=== PATIENT | male | born 1975 | race Caucasian/White ===

== ENCOUNTER → 2020-04-09 | Outpatient (CLI) | payer BC | LOC: LAB 11:02 | DX: U07.1 COVID-19 (principal) ==

== ENCOUNTER 2020-12-10 15:23 | Emergency (ER) | payer BC ==
[2020-12-10] MEDS ORDERED: ATORVASTATIN CA20 MG PO (15:52)
[2020-12-10] MEDS ORDERED: LISINOPRIL20 MG PO (15:52)
[2020-12-10] MEDS ORDERED: SERTRALINE HYD100 MG PO (15:52)
[2020-12-10] MEDS ORDERED: CENTRUM ADULTS1 EACH PO (15:53)
[2020-12-10 16:03] LABS: URINE APPEARANCE HAZY; URINE BILIRUBIN NEGATIVE (NEGATIVE); URINE BLOOD 50 ery/uL (NEGATIVE); URINE COLOR T; URINE GLUCOSE NEGATIVE (NEGATIVE); URINE KETONE NEGATIVE (NEGATIVE); URINE LEUKOCYTE ESTERASE TRACE (NEGATIVE); URINE NITRATE NEGATIVE (NEGATIVE); URINE PROTEIN(semi-quant) 1+ mg/dL (NEGATIVE); URINE UROBILINOGEN NORMAL (NORMAL)
[2020-12-10 16:04] LABS: URINE MUCUS PRESENT (NOT PRESENT)
[2020-12-10 16:43] LABS: BASO # 0.05 (0.02-0.10); EOS # 0.06 (0.04-0.40); EOS % 0.5 % (0.0-4.0); HEMATOCRIT 40.4 % (42.0-52.0); HEMOGLOBIN 13.7 g/dL (13.5-18.0); LYMPH# 1.34 (1.50-4.00); MEAN CELL VOLUME 89 fl (78-100); MEAN CORPUSCULAR HEMOGLOBIN 30 pg (27-31); MEAN CORPUSCULAR HGB CONC 34 g/dL (33-37); MEAN PLATELET VOLUME 9.4 fl (7.4-10.4); MONO # 0.55 (0.20-0.80); NEU # 10.25 (1.40-6.50); PLATELET COUNT 298 K/mm3 (130-400); RED BLOOD COUNT 4.54 M/mm3 (4.20-5.60); RED CELL DISTRIBUTION WIDTH 13.1 % (11.5-14.5); WHITE BLOOD COUNT 12.3 K/mm3 (4.8-10.8)
[2020-12-10 16:51] LABS: ALBUMIN 4.5 g/dL (3.5-5.0); POTASSIUM 4.3 mmol/L (3.5-5.1)
[2020-12-10 16:52] LABS: CALCIUM 9.4 mg/dL (8.3-10.5)
[2020-12-10 16:53] LABS: TOTAL PROTEIN 7.5 g/dL (6.4-8.3)
[2020-12-10 16:55] LABS: TOTAL BILIRUBIN 0.4 mg/dL (0.2-1.2)
[2020-12-10 19:02] VITALS: BP 142/78
== END 2020-12-10 19:03 | disposition home or self-care (01) ==
LOC: ED 15:23
PROVIDERS: Nurse Practitioner Family
DX: N17.9 Acute kidney failure, unspecified (principal); N20.0 Calculus of kidney; I10 Essential (primary) hypertension; E78.5 Hyperlipidemia, unspecified; F41.9 Anxiety disorder, unspecified; E66.9 Obesity, unspecified; Z79.899 Other long term (current) drug therapy; Z68.43 Body mass index [BMI] 50.0-59.9, adult
CPT/HCPCS: J1885; J2405; J7030; Q9967